=== PATIENT | female | born 1980 | race Caucasian/White ===

== ENCOUNTER 2017-11-12 02:51 | Inpatient (IN) | payer MEDICARE, OTHER, SELFPAY ==
[2017-11-12] VITALS (16 sets, daily range): BP systolic 82–132; BP diastolic 50–87; PULSE 71–124; RESP 14–20; TEMP 36.5–36.7; O2SAT 93–100; BMI 21.7
--- NOTE | 2017-11-12 02:59 | DI.RAD.S_ITS ---
PROCEDURE: XR ACUTE ABDOMEN SERIES INDICATIONS: Abdominal pain TECHNIQUE: One view chest and two views of the abdomen were acquired. COMPARISON: [facility], CT, CT ABDOMEN PELVIS WO CON, 11/12/2017, 3:49. FINDINGS: Surgical changes and devices: A right internal jugular Port-A-Cath is demonstrated with the tip extending into the proximal right atrium. Multiple surgical clips are demonstrated in the mediastinum. Chest: There are diffuse bilateral groundglass opacities which are nonspecific. Heart size is normal. No pleural effusions. No pneumoperitoneum. Abdomen: Bowel gas pattern is nonspecific with a paucity of small bowel gas. There is gas and stool demonstrated in the colon including in the rectum. No suspicious calcifications. Bones: No suspicious bony lesions. IMPRESSION: 1. Nonspecific bowel gas pattern with a paucity of small bowel gas. No evidence of obstruction. Recommend correlation with subsequent CT. 2. Diffuse bilateral groundglass opacities in the lungs are nonspecific and may represent pulmonary edema versus sequelae of infection. Dictated by: Tong Dominique M.D. on 11/12/2017 at 10:39 Approved by: Tong Dominique M.D. on 11/12/2017 at 10:41
--- NOTE | 2017-11-12 03:09 | ED_ITS ---
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 She denies provocation, palliation or radiation. She admits to nausea and vomiting but denies any change of bowel habits. She has had no dysuria, frequency or urgency. She was just at [facility] a few days ago with a diagnosis of pulmonary edema. Patient feels very dehydrated and becomes dizzy upon standing. MD complaint: abdominal pain Onset (ago): hour(s) Pain Consistency: intermittent Location: LLQ and RLQ Severity: severe Severity scale (1-10): 10 Quality: cramping and stabbing Radiation: none Migration to: no migration Relieving factors: nothing Exacerbating factors: movement Associated symptoms: nausea and vomiting Related Data Allergies Allergy/AdvReac Type Severity Reaction Status Date / Time doxycycline Allergy Verified 11/12/17 04:22 hydrocodone Allergy Verified 11/12/17 04:22 hydromorphone [From Dilaudid] Allergy Verified 11/12/17 04:22 levofloxacin [From Levaquin] Allergy Verified 11/12/17 04:22 oxycodone Allergy Verified 11/12/17 04:22 promethazine [From Phenergan] Allergy Verified 11/12/17 04:22 adhesive tape AdvReac Verified 11/12/17 04:22 Review of Systems Review of Systems All systems reviewed & are unremarkable except as noted in HPI and below Constitutional Denies chills, Denies fever(s), Denies lethargy and Denies weakness Eyes Denies change in vision, Denies eye discharge, Denies irritation and Denies loss of vision ENT Ears, Nose, Mouth, and Throat: Denies change in voice, Denies neck pain and Denies sore throat Cardiovascular Denies chest pain, Denies irregular heart rhythm, Denies lightheadedness, Denies palpitations and Denies orthopnea Gastrointestinal Gastrointestinal: Reports abdominal pain, Denies change in bowel habits, Denies diarrhea, Reports nausea and Reports vomiting Genitourinary Denies hematuria, Denies flank pain, Denies urinary incontinence and Denies urinary urgency Musculoskeletal Denies neck pain Integumentary/Breasts Denies pruritus, Denies erythema, Denies rash and Denies wounds Neurologic Denies confusion, Denies loss of vision and Denies weakness Psychiatric Denies anxiety, Denies confusion, Denies depression, Denies homicidal ideation and Denies suicidal ideation Endocrine Denies palpitations Hematologic/Lymphatic Denies easy bruising PFSH Medical History Anxiety (Acute) Cystic fibrosis (Acute) Depression (Acute) Diabetes (Acute) HTN (hypertension) (Acute) History of hysterectomy (Acute) Hypothyroidism (Acute) Lung transplant recipient (Acute) Osteopenia (Acute) Renal insufficiency (Acute) Small bowel obstruction (Acute) Surgical History History of appendectomy (Acute) Hx of cholecystectomy (Acute) Social History Smoking Status: Never smoker Exam Initial Vital Signs Initial Vital Signs: Vital Signs Temperature 98.1 F 11/12/17 04:02 Pulse Rate 98 H 11/12/17 04:02 Respiratory Rate 14 11/12/17 04:02 Blood Pressure 116/80 11/12/17 04:02 Pulse Oximetry 98 11/12/17 04:02 Const General: cooperative, well developed, acute distress and in distress Nutritional Appearance: well nourished Orientation: alert, awake, oriented x3 and not confused [facility] Head: normocephalic and atraumatic Ears: external ears normal and TM's normal bilaterally Nose: external nose normal and No nasal discharge Face and sinus: sinuses nontender, face symmetric, no sinus tenderness and No dry mucous membranes Mouth: No moist mucous membranes Teeth and gingiva: dentition normal Throat: tonsils normal and uvula midline Eyes General: appearance normal, both eyes and all related structures Eyelids: eyelids normal Conjunctivae: conjunctivae normal Sclera: sclerae normal Pupils: PERRL EOM: EOM intact bilaterally Resp Effort & Inspection: normal respiratory effort, able to speak in complete sentences, no respiratory distress and no use of accessory muscles Auscultation: clear to auscultation bilaterally, no rales, no rhonchi and no wheezes Cardio Rate: regular rate Rhythm: regular rhythm Heart Sounds: no click, no gallops, no murmurs and no rubs Pulses: normal peripheral pulses GI Inspection: non-distended Palpation: soft, no hepatosplenomegaly, No guarding, No pulsatile mass and tender Auscultation: normal bowel sounds Skin General: no rashes or lesions noted, No jaundice and No petechiae Neuro General: alert, oriented x3, gait normal and no focal motor deficits Speech: speech normal Extrem General: full ROM, no clubbing, cyanosis or edema, no pedal edema and no calf tenderness Psych Appearance: well kempt Mental Status: mental status grossly normal Attitude: cooperative Thought Content: normal and suicidality Judgment: judgment good Course Orders Ordered: ED Orders 11/12/17 EKG-12 Lead Routine 11/12/17 02:59 XR acute abdomen series Stat 11/12/17 03:31 Complete Blood Count AUTO DIFF Stat Comprehensive Metabolic Panel Stat Lactate (Lactic Acid) Stat Lipase Stat 11/12/17 03:51 CT abdomen pelvis wo con Stat 11/12/17 05:35 Potassium Stat Procalcitonin Stat White Blood Cell Count Stat Lactated Ringer's (Lactated Ringers) 1,000 mls @ 100 mls/hr IV CONT RAMONA Ondansetron HCl (Zofran) 4 mg IV Q4HR PRN PRN Reason: Nausea And Vomiting Last Admin: 11/12/17 03:32 Dose: 4 mg Discontinued Medications Hydrocortisone (Solu-Cortef) 100 mg IV NOW ONE Stop: 11/12/17 06:15 Hydromorphone HCl (Dilaudid) 0.5 mg IV NOW ONE Stop: 11/12/17 02:59 Last Admin: 11/12/17 03:33 Dose: Not Given Sodium Chloride (Normal Saline 0.9%) 1,000 mls @ 500 mls/hr IV CONT RAMONA Last Infusion: 11/12/17 06:09 Dose: 0 mls/hr Admin: 11/12/17 03:32 Dose: 500 mls/hr Morphine Sulfate (Morphine) 10 mg IV NOW ONE Stop: 11/12/17 03:24 Last Admin: 11/12/17 03:32 Dose: 10 mg Reevaluation(s) Reevaluation #1: Patient much more comfortable after morphine 10 mg IV Reevaluation #2: Patient continues to feel better though still has dry mucous membranes and feels a bit dizzy upon standing. Additionally when she moves her heart rate bumps up. She clearly needs more time in the hospital to stabilize her condition. I have called Dr. Sloan regarding her admission and he is happy to accept this patient on his service. He is happy with switching fluids to lactated Ringer's for more balanced fluid given her underlying renal disease. Additionally he requests hydrocortisone 100 mg IV Time: 06:23 Consultations Consultation #1: Called to transplant fellow at the [facility] to discuss the case. After discussion of history and physical as well as lab findings and images they do not feel the need to have the patient transferred to their facility and state weakening treat her locally. Vital Signs - 8 hr 11/12/17 04:02 11/12/17 05:50 11/12/17 06:12 Temperature 98.1 F Pulse Rate 98 H 102 H 102 H Respiratory Rate 14 20 Blood Pressure 116/80 Blood Pressure [Left Arm] 83/58 L 82/53 L Pulse Oximetry 98 99 100 MDM - Abdominal Pain Differential Diagnosis Differential diagnosis: Likely abdominal pain, constipation, endometriosis, pancreatitis and small bowel obstruction Medical Records Attestation: I reviewed the patient's medical records. Patient's complicated medical history, recent emergency department note from [place] [id number] to us. Lab Data Attestation: I reviewed the patient's lab results. Patient white count is elevated at 28,000, up from 12.5 on November 08. Additionally creatinine in is up from a baseline 2.8 up to 3.2. Potassium at 5.8 which is improved over the 6.0 from 11/08. Result diagrams: 11/12/17 05:35 11/12/17 05:35 Lab Results 11/12/17 11/12/17 11/12/17 Range/Units 03:31 03:31 03:31 WBC 28.2 H (4.5-11.0) X10^3/uL RBC 4.49 (4.0-5.2) X10^6/uL Hgb 12.1 (12.0-16.0) g/dL Hct 38.0 (36-46) % MCV 84.7 (80-100) fL MCH 27.0 (26-34) PG MCHC 31.9 (30-36) % RDW 13.6 (11.6-14.8) % Plt Count 336 (150-400) X10^3/uL Neut % (Auto) Not Reportable Lymph % (Auto) Not Reportable [place] % (Auto) Not Reportable Eos % (Auto) Not Reportable Baso % (Auto) Not Reportable Seg Neutrophils % 78.0 H (38-70) % Band Neutrophils % 4.0 (3-7) % Lymphocytes % (Manual) 4.0 L (25-45) % Monocytes % (Manual) 8.0 (2-11) % Eosinophils % (Manual) 3.0 (2-4) % Myelocytes % 3.0 H (-0) % Differential Comment Normal morphology RBC Morphology Normal morphology Sodium 139 (137-145) mmol/L Potassium 5.8 H (3.4-5.1) mmol/L Chloride 106.0 (98-107) mmol/L Carbon Dioxide 18.0 L (22-32) mmol/L BUN 64.0 H (7-17) mg/dL Creatinine 3.20 H (0.52-1.04) mg/dL Estimated GFR 16.5 L (>60) mL/min BUN/Creatinine Ratio 20.0 (6-22) Glucose 252 H (70-100) mg/dL Lactate 0.8 (0.7-2.1) mmol/L Calcium 9.9 (8.4-10.2) mg/dL Total Bilirubin 0.4 (0.2-1.3) mg/dL AST 17 (14-36) IU/L ALT 20 (9-52) IU/L Alkaline Phosphatase 121 (38-126) U/L Total Protein 6.8 (6.3-8.2) g/dL Albumin 3.5 (3.5-5.0) g/dL Globulin 3.3 (1.7-4.1) g/dL Albumin/Globulin Ratio 1.1 (1.0-2.8) Lipase < 10 L (23-300) U/L 11/12/17 11/12/17 Range/Units 05:35 05:35 WBC 22.2 H (4.5-11.0) X10^3/uL RBC (4.0-5.2) X10^6/uL Hgb (12.0-16.0) g/dL Hct (36-46) % MCV (80-100) fL MCH (26-34) PG MCHC (30-36) % RDW (11.6-14.8) % Plt Count (150-400) X10^3/uL Neut % (Auto) Lymph % (Auto) [place] % (Auto) Eos % (Auto) Baso % (Auto) Seg Neutrophils % (38-70) % Band Neutrophils % (3-7) % Lymphocytes % (Manual) (25-45) % Monocytes % (Manual) (2-11) % Eosinophils % (Manual) (2-4) % Myelocytes % (-0) % Differential Comment RBC Morphology Sodium (137-145) mmol/L Potassium 5.5 H (3.4-5.1) mmol/L Chloride (98-107) mmol/L Carbon Dioxide (22-32) mmol/L BUN (7-17) mg/dL Creatinine (0.52-1.04) mg/dL Estimated GFR (>60) mL/min BUN/Creatinine Ratio (6-22) Glucose (70-100) mg/dL Lactate (0.7-2.1) mmol/L Calcium (8.4-10.2) mg/dL Total Bilirubin (0.2-1.3) mg/dL AST (14-36) IU/L ALT (9-52) IU/L Alkaline Phosphatase (38-126) U/L Total Protein (6.3-8.2) g/dL Albumin (3.5-5.0) g/dL Globulin (1.7-4.1) g/dL Albumin/Globulin Ratio (1.0-2.8) Lipase (23-300) U/L Imaging Data CT scan - abdomen: Radiologist's impression: Multiple loops of thickened small bowel of which arm mildly distended, infection versus inflammatory bowel disease is favored ECG Data Attestation: I personally reviewed and interpreted this ECG as follows: Prior ECG tracings: not available for review Interpretation: Sinus tachycardia at 1:05 a.m. with no signs of ectopy. No ST segmental or T-wave abnormalities Discharge Plan Departure Patient Disposition: Admitted As Inpatient Clinical Impression: Abdominal pain, Dehydration
[2017-11-12] MEDS: MORPHINE 10 MG/ML INJ IV (03:32)
[2017-11-12] MEDS: ONDANSETRON 4 MG/2 ML INJ IV ×2 (03:32→10:41)
[2017-11-12] MEDS: SODIUM CHLORIDE 0.9% 1,000 ML 500 ML IV (03:32)
[2017-11-12 03:47] LABS: Hemoglobin 12.1 g/dL (12.0-16.0); Mean Corpuscular HGB Conc 31.9 % (30-36); Mean Corpuscular Volume 84.7 fL (80-100); Platelet Count 336 X10^3/uL (150-400); Red Blood Cell Count 4.49 X10^6/uL (4.0-5.2); Red Cell Distribution Width 13.6 % (11.6-14.8); White Blood Cell Count 28.2 X10^3/uL (4.5-11.0)
[2017-11-12 03:48] LABS: Add Manual Diff / Slide Review YES
[2017-11-12 03:49] LABS: Alanine Aminotransferase 20 IU/L (9-52); Albumin 3.5 g/dL (3.5-5.0); Albumin Globulin Ratio 1.1 (1.0-2.8); Alkaline Phosphatase 121 U/L (38-126); Aspartate Aminotransferase 17 IU/L (14-36); Bilirubin Total 0.4 mg/dL (0.2-1.3); Calcium 9.9 mg/dL (8.4-10.2); Estimated Glomerular Filt Rate 16.5 mL/min (>60); Globulin 3.3 g/dL (1.7-4.1); Glucose 252 mg/dL (70-100); HEMOLYSIS < 15 (0-50); Lactate (Lactic Acid) 0.8 mmol/L (0.7-2.1); Sodium 139 mmol/L (137-145); Total Protein 6.8 g/dL (6.3-8.2)
--- NOTE | 2017-11-12 03:51 | DI.CT.S_ITS ---
PROCEDURE: CT ABDOMEN PELVIS WO CON INDICATIONS: Severe abdominal pain. Reported history of cystic fibrosis. TECHNIQUE: Noncontrast 5 mm thick sections acquired from the diaphragms to the symphysis. 5 mm coronal and sagittal reformats were then performed. For radiation dose reduction, the following was used: automated exposure control, adjustment of mA and/or kV according to patient size. COMPARISON: None. FINDINGS: Image quality: Excellent. ABDOMEN: Lung bases: The visualized lung bases demonstrate bibasilar indistinct ground glass opacities and septal thickening likely representing sequelae of chronic scarring and infection given reported history of cystic fibrosis. There is also hyperlucency of the visualized lungs. Heart size is normal. A small hiatal hernia is present with mild fluid distention of the visualized distal esophagus. Solid organs: Liver is normal in size. Gallbladder is surgically absent. Pancreas is normal in contours. Spleen is normal in size. No adrenal nodules. Kidneys demonstrate no hydronephrosis. There is a nonobstructing right renal stone measuring up to 8 mm. There are also small hypoattenuating round lesions within the kidneys bilaterally likely representing cysts. Mild perinephric stranding demonstrated bilaterally. Peritoneum and bowel: There are multiple segments of mild bowel wall thickening predominantly in the left mid abdomen and left lower quadrant with associated mild inflammatory fat stranding and edema within the small bowel mesentery. The colon demonstrates normal caliber and wall thickness. There is colonic diverticulosis without acute diverticulitis. There is a small to moderate amount of free fluid in the pelvis. No free air. Nodes and vessels: No retroperitoneal or mesenteric adenopathy by size criteria. Aorta and inferior vena cava are normal in caliber. Miscellaneous: No ventral hernias. PELVIS: Genitourinary: Bladder wall thickness is normal. Miscellaneous: No inguinal hernias or adenopathy. Bones: No suspicious bony lesions. No vertebral body compression fractures. IMPRESSION: 1. Multiple segments of small bowel wall thickening with associated fat stranding and edema in the small bowel mesentery. The findings are consistent with a nonspecific enteritis, likely infectious or inflammatory in etiology. 2. Hyperlucent appearance of the visualized lungs with bibasilar changes compatible of chronic scarring. The findings are likely related to patient's reported history of cystic fibrosis. 3. Nonobstructing right renal stone. 4. Small to moderate amount of free fluid in the pelvis is nonspecific and may be reactive. No free air. Dictated by: Tong Dominique M.D. on 11/12/2017 at 10:09 Approved by: Tong Dominique M.D. on 11/12/2017 at 10:16
[2017-11-12 03:54] LABS: Lipase < 10 U/L (23-300); Potassium 5.8 mmol/L (3.4-5.1)
[2017-11-12 04:24] LABS: Morphology Comment Normal Morphology
[2017-11-12 04:26] LABS: RBC Morphology Normal Morphology
--- NOTE | 2017-11-12 04:40 | PC.NURSE ---
PT placed on 3L O2 NC per pt request states she is on O2 at home when she sleeps.
[2017-11-12 05:45] LABS: White Blood Cell Count 22.2 X10^3/uL (4.5-11.0)
[2017-11-12 05:48] LABS: HEMOLYSIS < 15 (0-50)
[2017-11-12 05:50] LABS: Potassium 5.5 mmol/L (3.4-5.1)
[2017-11-12] MEDS: HYDROCORTISONE 100 MG/2 ML VIAL IV ×3 (06:19→20:33)
[2017-11-12] MEDS: LACTATED RINGERS 1,000 ML 100 ML IV (06:20)
[2017-11-12 06:39] LABS: Procalcitonin 0.37 ng/mL (<0.5)
--- NOTE | 2017-11-12 09:56 | PM.HP.1 ---
History of Present Illness Date Patient Seen: 11/12/17 Time Patient Seen: 09:30 Chief complaint: Abdominal pain Narrative: Patty Butler is a 37 year old female, a patient of Dr. Piedad Hayes, presented to the [facility] Emergency room earlier this morning for abdominal pain. She started having abdominal discomfort around 10:30 p.m. last night. Her abdominal pain got worse over the next few hours. She describes intense cramping sensation in her stomach. The severity of the pain can get up to about 12/10 at its worst. The baseline pain is around 3 to 4/10. The pain is worse with body movements. Her last bowel movement was around 3 o'clock yesterday afternoon which was normal. She had nausea and vomited about 6 times. She tried to take Pepto-Bismol at home which did not help. Around 1 o'clock in the morning when she stood up, she felt lightheaded. 911 was called and she was brought to the [facility] Emergency Room. Abdominal CT scan showed multiple loops of thickened small bowels. She was also noticed to be hypotensive and tachycardic. She received stress dose steroid and aggressive IV hydration and was admitted to the medicine floor for abdominal pain and dehydration. 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 Her is currently deployed from the [place]. Denies alcohol drinking or cigarette smoking. 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 Family history: Father has type 2 diabetes. Both of her parents have hypertension. Meds Home Medications Medication Instructions Recorded Confirmed Type docusate sodium 100 mg PO BID 11/12/17 11/12/17 History ferrous sulfate 325 mg PO BID 11/12/17 11/12/17 History insulin aspart U-100 SUB-Q TIDWM 11/12/17 History levalbuterol HCl 0.63 mg INHALATION DAILY PRN 11/12/17 11/12/17 History levothyroxine 1 tab PO DAILY 11/12/17 11/12/17 History metoprolol succinate 50 mg PO BID 11/12/17 11/12/17 History omeprazole 1 cap PO BID 11/12/17 11/12/17 History prednisone 1 tab PO DAILY 11/12/17 11/12/17 History sirolimus 4 mg PO DAILY 11/12/17 11/12/17 History Allergies Allergy/AdvReac Type Severity Reaction Status Date / Time codeine Allergy Verified 11/12/17 09:47 diatrizoate sodium Allergy Anaphylaxis Verified 11/12/17 09:52 doxycycline Allergy Verified 11/12/17 04:22 hydrocodone Allergy Verified 11/12/17 04:22 hydromorphone [From Dilaudid] Allergy Verified 11/12/17 04:22 iodine Allergy Rash Verified 11/12/17 09:51 levofloxacin [From Levaquin] Allergy Rash Verified 11/12/17 09:53 oxycodone Allergy Verified 11/12/17 04:22 promethazine [From Phenergan] Allergy Verified 11/12/17 04:22 shellfish derived Allergy Hives Verified 11/12/17 09:55 shrimp Allergy Verified 11/12/17 09:55 adhesive tape AdvReac Verified 11/12/17 04:22 propofol AdvReac Nausea Verified 11/12/17 09:54 Review of Systems Constitutional Comments: No fever chills or sweats Cardiovascular Comments: No chest pain or shortness breath Respiratory Comments: Denies cough Gastrointestinal Gastrointestinal: Reports as per HPI Genitourinary Comments: No dysuria Neurologic Comments: No weakness or numbness Exam Vital Signs (past 8 hours): Vital Signs - 8 hr 11/12/17 03:20 11/12/17 04:02 11/12/17 04:10 Temperature 98.1 F Pulse Rate 110 H 98 H 116 H Respiratory Rate 14 Blood Pressure 116/80 Blood Pressure [Left Arm] 110/77 96/62 Pulse Oximetry 94 98 100 11/12/17 04:20 11/12/17 04:50 11/12/17 05:20 Temperature Pulse Rate 116 H 124 H 117 H Respiratory Rate Blood Pressure Blood Pressure [Left Arm] 93/60 96/54 L 93/59 L Pulse Oximetry 99 100 99 11/12/17 05:50 11/12/17 06:12 11/12/17 07:00 Temperature 97.7 F Pulse Rate 102 H 102 H Respiratory Rate 20 20 Blood Pressure 82/57 L Blood Pressure [Left Arm] 83/58 L 82/53 L Pulse Oximetry 99 100 97 11/12/17 07:59 Temperature 97.7 F Pulse Rate 92 H Respiratory Rate 20 Blood Pressure 90/50 L Blood Pressure [Left Arm] Pulse Oximetry 96 Pulse Oximetry 96 Oxygen Delivery Method Nasal Cannula Oxygen Flow Rate 2 Narrative Exam Narrative: GENERAL: Middle-aged woman in no acute distress. HEENT: Head normocephalic, atraumatic. Eyes pupils equal round NECK: Supple, no JVD, CHEST: Breath sounds equal bilaterally, no wheezes rales or rhonchi. CARDIAC: Regular rate and rhythm without murmurs, rubs or gallops. ABDOMEN: Mildly distended, diffuse tenderness, more noticeable in the left lower quadrant, possible rebound tenderness, decreased bowel sounds, EXTEMITIES: Normal range of motion, no clubbing or edema. NEUROLOGICAL: Alert and oriented; Normal muscle strength. SKIN: Warm, dry, no petechiae, no rashes or lesions. Objective Labs Result Diagrams: 11/12/17 05:35 11/12/17 05:35 Labs: Laboratory Results - last 24 hr 11/12/17 11/12/17 11/12/17 03:31 03:31 03:31 WBC 28.2 H RBC 4.49 Hgb 12.1 Hct 38.0 MCV 84.7 MCH 27.0 MCHC 31.9 RDW 13.6 Plt Count 336 Neut % (Auto) Not Reportable Lymph % (Auto) Not Reportable [place] % (Auto) Not Reportable Eos % (Auto) Not Reportable Baso % (Auto) Not Reportable Seg Neutrophils % 78.0 H Band Neutrophils % 4.0 Lymphocytes % (Manual) 4.0 L Monocytes % (Manual) 8.0 Eosinophils % (Manual) 3.0 Myelocytes % 3.0 H Differential Comment Normal morphology RBC Morphology Normal morphology Sodium 139 Potassium 5.8 H Chloride 106.0 Carbon Dioxide 18.0 L BUN 64.0 H Creatinine 3.20 H Estimated GFR 16.5 L BUN/Creatinine Ratio 20.0 Glucose 252 H Lactate 0.8 Calcium 9.9 Total Bilirubin 0.4 AST 17 ALT 20 Alkaline Phosphatase 121 Total Protein 6.8 Albumin 3.5 Globulin 3.3 Albumin/Globulin Ratio 1.1 Lipase < 10 L Procalcitonin 11/12/17 11/12/1718 05:35 05:35 05:35 WBC 22.2 H RBC Hgb Hct MCV MCH MCHC RDW Plt Count Neut % (Auto) Lymph % (Auto) [place] % (Auto) Eos % (Auto) Baso % (Auto) Seg Neutrophils % Band Neutrophils % Lymphocytes % (Manual) Monocytes % (Manual) Eosinophils % (Manual) Myelocytes % Differential Comment RBC Morphology Sodium Potassium 5.5 H Chloride Carbon Dioxide BUN Creatinine Estimated GFR BUN/Creatinine Ratio Glucose Lactate Calcium Total Bilirubin AST ALT Alkaline Phosphatase Total Protein Albumin Globulin Albumin/Globulin Ratio Lipase Procalcitonin 0.37 Assessment & Plan Plan: Plan: 1. Abdominal pain: The abdominal CT scan showed bowel wall thickening and dilation of the small bowel. We will continue conservative management. Increased IV fluid rate to 150 cc an hour. Use morphine as needed for pain. Use Zofran as needed for nausea. 2. History of lung transplant: Patient is immune compromised. Start stress dose steroid with hydrocortisone 100 mg q.8 hours. Continue tacrolimus per outpatient dosing. 3. Hypertension: Patient is currently hypotensive. Hold antihypertensive medications. 4. Chronic kidney disease stage 4: Baseline creatinine around 2.9. We will continue monitor her renal function. She is on transplant list at [facility] for living donor kidney transplant.
--- NOTE | 2017-11-12 10:07 | P.HP_ITS ---
History of Present Illness Date Patient Seen: 11/12/17 Time Patient Seen: 09:30 Chief complaint: Abdominal pain Narrative: Patty Butler is a 37 year old female, a patient of Dr. Piedad Hayes , presented to the [facility] Emergency room earlier this morning for abdominal pain. She started having abdominal discomfort around 10:30 p.m. last night. Her abdominal pain got worse over the next few hours. She describes intense cramping sensation in her stomach. The severity of the pain can get up to about 12/10 at its worst. The baseline pain is around 3 to 4/10. The pain is worse with body movements. Her last bowel movement was around 3 o'clock yesterday afternoon which was normal. She had nausea and vomited about 6 times. She tried to take Pepto-Bismol at home which did not help. Around 1 o' clock in the morning when she stood up, she felt lightheaded. 911 was called and she was brought to the [facility] Emergency Room. Abdominal CT scan showed multiple loops of thickened small bowels. She was also noticed to be hypotensive and tachycardic. She received stress dose steroid and aggressive IV hydration and was admitted to the medicine floor for abdominal pain and dehydration. 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 Her is currently deployed from the [facility] [place]. Denies alcohol drinking or cigarette smoking. 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 Family history: Father has type 2 diabetes. Both of her parents have hypertension. Meds Home Medications Medication Instructions Recorded Confirmed Type docusate sodium 100 mg PO BID 11/12/17 11/12/17 History ferrous sulfate 325 mg PO BID 11/12/17 11/12/17 History insulin aspart U-100 SUB-Q TIDWM 11/12/17 History levalbuterol HCl 0.63 mg INHALATION DAILY PRN 11/12/17 11/12/17 History levothyroxine 1 tab PO DAILY 11/12/17 11/12/17 History metoprolol succinate 50 mg PO BID 11/12/17 11/12/17 History omeprazole 1 cap PO BID 11/12/17 11/12/17 History prednisone 1 tab PO DAILY 11/12/17 11/12/17 History sirolimus 4 mg PO DAILY 11/12/17 11/12/17 History Allergies Allergy/AdvReac Type Severity Reaction Status Date / Time codeine Allergy Verified 11/12/17 09:47 diatrizoate sodium Allergy Anaphylaxis Verified 11/12/17 09:52 doxycycline Allergy Verified 11/12/17 04:22 hydrocodone Allergy Verified 11/12/17 04:22 hydromorphone [From Dilaudid] Allergy Verified 11/12/17 04:22 iodine Allergy Rash Verified 11/12/17 09:51 levofloxacin [From Levaquin] Allergy Rash Verified 11/12/17 09:53 oxycodone Allergy Verified 11/12/17 04:22 promethazine [From Phenergan] Allergy Verified 11/12/17 04:22 shellfish derived Allergy Hives Verified 11/12/17 09:55 shrimp Allergy Verified 11/12/17 09:55 adhesive tape AdvReac Verified 11/12/17 04:22 propofol AdvReac Nausea Verified 11/12/17 09:54 Review of Systems Constitutional Comments: No fever chills or sweats Cardiovascular Comments: No chest pain or shortness breath Respiratory Comments: Denies cough Gastrointestinal Gastrointestinal: Reports as per HPI Genitourinary Comments: No dysuria Neurologic Comments: No weakness or numbness Exam Vital Signs (past 8 hours): Vital Signs - 8 hr 3 11/12/17 03:20 11/12/17 04:02 11/12/17 04:10 Temperature 98.1 F Pulse Rate 110 H 98 H 116 H Respiratory Rate 14 Blood Pressure 116/80 Blood Pressure [Left Arm] 110/77 96/62 Pulse Oximetry 94 98 100 3 11/12/17 04:20 11/12/17 04:50 11/12/17 05:20 Temperature Pulse Rate 116 H 124 H 117 H Respiratory Rate Blood Pressure Blood Pressure [Left Arm] 93/60 96/54 L 93/59 L Pulse Oximetry 99 100 99 3 11/12/17 05:50 11/12/17 06:12 11/12/17 07:00 Temperature 97.7 F Pulse Rate 102 H 102 H Respiratory Rate 20 20 Blood Pressure 82/57 L Blood Pressure [Left Arm] 83/58 L 82/53 L Pulse Oximetry 99 100 97 3 11/12/17 07:59 Temperature 97.7 F Pulse Rate 92 H Respiratory Rate 20 Blood Pressure 90/50 L Blood Pressure [Left Arm] Pulse Oximetry 96 Pulse Oximetry 96 Oxygen Delivery Method Nasal Cannula Oxygen Flow Rate 2 Narrative Exam Narrative: GENERAL: Middle-aged woman in no acute distress. HEENT: Head normocephalic, atraumatic. Eyes pupils equal round NECK: Supple, no JVD, CHEST: Breath sounds equal bilaterally, no wheezes rales or rhonchi. CARDIAC: Regular rate and rhythm without murmurs, rubs or gallops. ABDOMEN: Mildly distended, diffuse tenderness, more noticeable in the left lower quadrant, possible rebound tenderness, decreased bowel sounds, EXTEMITIES: Normal range of motion, no clubbing or edema. NEUROLOGICAL: Alert and oriented; Normal muscle strength. SKIN: Warm, dry, no petechiae, no rashes or lesions. Objective Labs Result Diagrams: 11/12/17 05:35 11/12/17 05:35 Labs: Laboratory Results - last 24 hr 11/12/17 11/12/17 11/12/17 03:31 03:31 03:31 WBC 28.2 H RBC 4.49 Hgb 12.1 Hct 38.0 MCV 84.7 MCH 27.0 MCHC 31.9 RDW 13.6 Plt Count 336 Neut % (Auto) Not Reportable Lymph % (Auto) Not Reportable [place] % (Auto) Not Reportable Eos % (Auto) Not Reportable Baso % (Auto) Not Reportable Seg Neutrophils % 78.0 H Band Neutrophils % 4.0 Lymphocytes % (Manual) 4.0 L Monocytes % (Manual) 8.0 Eosinophils % (Manual) 3.0 Myelocytes % 3.0 H Differential Comment Normal morphology RBC Morphology Normal morphology Sodium 139 Potassium 5.8 H Chloride 106.0 Carbon Dioxide 18.0 L BUN 64.0 H Creatinine 3.20 H Estimated GFR 16.5 L BUN/Creatinine Ratio 20.0 Glucose 252 H Lactate 0.8 Calcium 9.9 Total Bilirubin 0.4 AST 17 ALT 20 Alkaline Phosphatase 121 Total Protein 6.8 Albumin 3.5 Globulin 3.3 Albumin/Globulin Ratio 1.1 Lipase < 10 L Procalcitonin 11/12/17 11/12/17 11/12/17 05:35 05:35 05:35 WBC 22.2 H RBC Hgb Hct MCV MCH MCHC RDW Plt Count Neut % (Auto) Lymph % (Auto) [place] % (Auto) Eos % (Auto) Baso % (Auto) Seg Neutrophils % Band Neutrophils % Lymphocytes % (Manual) Monocytes % (Manual) Eosinophils % (Manual) Myelocytes % Differential Comment RBC Morphology Sodium Potassium 5.5 H Chloride Carbon Dioxide BUN Creatinine Estimated GFR BUN/Creatinine Ratio Glucose Lactate Calcium Total Bilirubin AST ALT Alkaline Phosphatase Total Protein Albumin Globulin Albumin/Globulin Ratio Lipase Procalcitonin 0.37 Assessment & Plan Plan: Plan: 1. Abdominal pain: The abdominal CT scan showed bowel wall thickening and dilation of the small bowel. We will continue conservative management. Increased IV fluid rate to 150 cc an hour. Use morphine as needed for pain. Use Zofran as needed for nausea. 2. History of lung transplant: Patient is immune compromised. Start stress dose steroid with hydrocortisone 100 mg q.8 hours. Continue tacrolimus per outpatient dosing. 3. Hypertension: Patient is currently hypotensive. Hold antihypertensive medications. 4. Chronic kidney disease stage 4: Baseline creatinine around 2.9. We will continue monitor her renal function. She is on transplant list at [facility] for living donor kidney transplant.
[2017-11-12] MEDS: MORPHINE 4 MG/ML INJ 6 MG IV (10:43)
--- NOTE | 2017-11-12 12:34 | CM.DANOTE ---
DCP Assessment Patient is a 37 year old female who was admitted on 11/12/17 for Abdominal Pain. Pt has [employer] and [employer] for insurance and her PCP is not listed. EMR was reviewed. Per MD, pt has cystic fibrosis at baseline and a lung transplant years ago and is currently on the list for a kidney transplant. 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 SW attempted to meet bedside with pt but pt had friend bedside and requested SW to come back. SW came back and RN going through medications with the pt. SW will attempt again to help determine any d/c planning needs. Plan: SW to follow for bedside assessment with the pt towards determining d/c planning needs. SW needs unclear at this time. PRITI Nam
[2017-11-12] MEDS: INSULIN GLARGINE 100 UNIT/ML 3ML PEN 10 UNIT SUBCUT (13:17)
[2017-11-12] MEDS: LACTATED RINGERS 1,000 ML 150 ML IV (14:33)
[2017-11-12] MEDS: BENZOCAINE/MENTHOL 1 LOZ PKT 1 EACH PO (17:18)
[2017-11-12] MEDS: INSULIN ASPART 100 UNIT/ML INSULN PEN SUBCUT ×2 (17:19→20:29)
[2017-11-12] MEDS: TACROLIMUS 1 MG PO (20:36)
[2017-11-12] MEDS: FERROUS SULFATE 325 MG TABLET PO (20:36)
[2017-11-12] MEDS: TORSEMIDE 10 MG TABLET PO (20:36)
[2017-11-12] MEDS: CALCIUM CARBONATE 600 MG TABLET PO (20:37)
[2017-11-12] MEDS: CHOLECALCIFEROL (VITAMIN D3) 400 UNIT TABLET PO (20:37)
[2017-11-12] MEDS: PANTOPRAZOLE 20 MG TABLET PO (20:38)
[2017-11-13] VITALS (10 sets, daily range): BP systolic 125–155; BP diastolic 73–91; PULSE 87–100; RESP 15–22; TEMP 36.1–36.7; O2SAT 96–100
[2017-11-13] MEDS: HYDROCORTISONE 100 MG/2 ML VIAL IV (04:37)
[2017-11-13] MEDS: SODIUM CHLORIDE 0.9% FLUSH 10 ML IV ×4 (04:37→21:16)
--- NOTE | 2017-11-13 05:09 | PC.NURSE ---
Pt. requested CXR, states I was hospitalized last Tuesday for Pulmonary Edema & my symptoms now are the same. C/O dyspnea with exertion, also noted LLL crackles, 2 liters humidified SPO2 96%. Dr. Solorzano notified order for portable chest X-ray. Will place order & notify X-ray dept. Will monitor.
[2017-11-13] MEDS: BENZOCAINE/MENTHOL 1 LOZ PKT 1 EACH PO ×2 (05:19→11:52)
[2017-11-13] MEDS: LEVOTHYROXINE 50 MCG TABLET PO (05:20)
--- NOTE | 2017-11-13 05:29 | DI.RAD.S_ITS ---
PROCEDURE: XR CHEST 1V INDICATIONS: Dyspnea SOB with exertion. Hx. of Pulmonary edema. TECHNIQUE: One view of the chest was acquired. COMPARISON: [facility], CT, CT ABDOMEN PELVIS WO CON, 11/12/2017, 3:49. [facility], CR, XR ACUTE ABDOMEN SERIES, 11/12/2017, 2:40. FINDINGS: Surgical changes and devices: Port-A-Cath right sided approach. Surgical clips bilaterally at the mediastinum, uncertain reason by appearance. Lungs and pleura: No pleural effusions or pneumothorax. Lungs are abnormal with a interstitial prominence, perhaps related to a prior smoking history. However, a prior recent CT enclosed a history of cystic fibrosis and this is considered more likely the cause with that history. What appears to be a small nodule is present at the lateral right upper lobe near the apex, rounded and measuring approximately 7-8 mm in diameter. More inferiorly no definite nodule is seen. Mediastinum: Mediastinal contours appear normal. Heart size is normal. Bones and chest wall: No suspicious bony lesions. Overlying soft tissues appear unremarkable. IMPRESSION: The clinical history associated with a recent CT scan included a statement of prior history of cystic fibrosis. This is the presumed cause for the interstitial prominence of the lung parenchyma. A Port-A-Cath is in normal position. Surgical clips are present at the mid hilum level, uncertain surgical intervention etiology by appearance. Note is made of a small 7 by 8mm lateral right upper lobe nodule near the apex, near the course of the Port-A-Cath catheter. This could represent a small granuloma. It can be seen with benefit of retrospect on the chest portion of a recent abdominal plain film series but that was only obtained several days ago. Old comparison films presumably are available for the patient assuming the history of cystic fibrosis is correct. Reference to old chest plain films is recommended but if not available either followup by plain film or CT scanning as necessary. Dictated by: Kennedy Pak M.D. on 11/13/2017 at 8:25 Approved by: Kennedy Pak M.D. on 11/13/2017 at 8:30
[2017-11-13] MEDS: INSULIN ASPART 100 UNIT/ML INSULN PEN SUBCUT ×4 (06:23→17:33)
[2017-11-13] MEDS: [UNRECOGNIZED DRUG - OTHER] IV ×3 (06:47→21:14)
[2017-11-13] MEDS: HEPARIN 100 UNIT/ML IV ×3 (06:47→21:14)
[2017-11-13 07:12] LABS: Add Manual Diff / Slide Review YES; Hematocrit 28.3 % (36-46); Hemoglobin 9.2 g/dL (12.0-16.0); Mean Corpuscular HGB Conc 32.7 % (30-36); Mean Corpuscular Hemoglobin 27.4 PG (26-34); Mean Corpuscular Volume 83.9 fL (80-100); Platelet Count 280 X10^3/uL (150-400); Red Blood Cell Count 3.37 X10^6/uL (4.0-5.2); Red Cell Distribution Width 13.4 % (11.6-14.8); White Blood Cell Count 11.5 X10^3/uL (4.5-11.0)
[2017-11-13 07:15] LABS: BUN Creatinine Ratio 17.4 (6-22); Calcium 9.2 mg/dL (8.4-10.2); Estimated Glomerular Filt Rate 13.5 mL/min (>60); Glucose 200 mg/dL (70-100); HEMOLYSIS < 15 (0-50); Sodium 136 mmol/L (137-145)
[2017-11-13 07:23] LABS: Potassium 6.1 mmol/L (3.4-5.1)
[2017-11-13 08:02] LABS: Neutrophils Absolute Manual 10810 /uL (3000-5900); Total Cells Counted 100
[2017-11-13 08:04] LABS: Basophilic Stippling 1+; Polychromasia 1+
--- NOTE | 2017-11-13 08:13 | PM.PN.1 ---
Subjective Date Patient Seen: 11/13/17 Time Patient Seen: 08:00 Interval history: Patient has improvement of her abdominal discomfort, nausea, and vomiting. She received 3 L of IV fluid yesterday. She felt short of breath in the middle of night last night and requested the IV fluid to be discontinued. A portable chest x-ray was done earlier this morning. The result is still pending. She also noticed her glucose was elevated yesterday after she received stress dose steroid. Exam Vital Signs (past 8 hours): Vital Signs - 8 hr 11/13/17 05:01 Temperature 97.4 F L Pulse Rate 100 H Respiratory Rate 22 Blood Pressure 155/77 H Pulse Oximetry 96 Pulse Oximetry 96 Oxygen Delivery Method Nasal Cannula,Humidification Oxygen Flow Rate 1 Narrative Exam Narrative: GENERAL: Middle-aged woman in no acute distress. HEENT: Head normocephalic, atraumatic. Eyes pupils equal round NECK: Supple, no JVD, CHEST: Breath sounds equal bilaterally, no wheezes rales or rhonchi. CARDIAC: Regular rate and rhythm without murmurs, rubs or gallops. ABDOMEN: Soft, nontender EXTEMITIES: Normal range of motion, no clubbing or edema. NEUROLOGICAL: Alert and oriented; Normal muscle strength. SKIN: Warm, dry, no petechiae, no rashes or lesions. Objective Labs Result Diagrams: 11/13/17 06:42 11/13/17 06:42 Labs: Laboratory Results - last 24 hr 11/13/17 11/13/17 06:42 06:42 WBC 11.5 H RBC 3.37 L Hgb 9.2 L Hct 28.3 L MCV 83.9 MCH 27.4 MCHC 32.7 RDW 13.4 Plt Count 280 Neut % (Auto) Not Reportable Lymph % (Auto) Not Reportable [place] % (Auto) Not Reportable Eos % (Auto) Not Reportable Baso % (Auto) Not Reportable Total Counted 100 Seg Neutrophils % 78.0 H Band Neutrophils % 16.0 H Lymphocytes % (Manual) 2.0 L Monocytes % (Manual) 2.0 Metamyelocytes % 1.0 H Myelocytes % 1.0 H Neutrophils # (Manual) 89324 H RBC Morphology Not Reportable Polychromasia 1+ H Basophilic Stippling 1+ H Sodium 136 L Potassium 6.1 H Chloride 105.0 Carbon Dioxide 19.0 L BUN 66.0 H Creatinine 3.80 H Estimated GFR 13.5 L BUN/Creatinine Ratio 17.4 Glucose 200 H Calcium 9.2 Assessment & Plan Plan: Plan: 1. Abdominal pain: Possible viral gastroenteritis. She had significant improvement of her symptoms overnight with conservative management. IV fluid was discontinued last night. We will advance diet to full liquid diet and possibly to diabetic diet later this afternoon if she tolerates. Continue symptomatic control 2. Dehydration: Resolved after IV hydration. She received 3 L of IV fluid yesterday. 3. Acute kidney injury on chronic kidney disease stage 4. Her creatinine is elevated compared to her recent baseline, likely secondary to pre renal from hypotension. Hold lisinopril and torsemide today. She has improvement of her urine output in the past 12 hr. We will continue monitor her renal function. 4. Hyperkalemia: Secondary to acute kidney injury. Hold lisinopril. Continue monitor her electrolytes. 5. Hypertension: Her antihypertensive medications were on hold yesterday due to hypotension. We will restart metoprolol and amlodipine today. Hold lisinopril due to acute kidney injury and hyperkalemia. Continue monitor her blood pressure readings. 6. History of lung transplant: Patient is immune compromised. She received stress dose steroids with hydrocortisone 100 mg q.8 hours for the 1st 24 hr. Discontinue IV hydrocortisone. Continue prednisone 10 mg daily per outpatient dosing.. Continue tacrolimus per outpatient dosing. 7. Hypertension: Patient is currently hypotensive. Hold antihypertensive medications. 8. Chronic kidney disease stage 4: Baseline creatinine around 2.9. We will continue monitor her renal function. She is on transplant list at [facility] for living donor kidney transplant. 9. Disposition: Likely discharge home tomorrow if she continues to improve. Quality VTE Deep Vein Thrombosis/Pulmonary Embolism Present on Admission: No
[2017-11-13] MEDS: METOPROLOL 50 MG TABLET PO ×2 (08:37→21:15)
[2017-11-13] MEDS: AMLODIPINE 2.5 MG TABLET PO (08:37)
[2017-11-13] MEDS: TACROLIMUS 1 MG PO ×2 (08:37→21:16)
[2017-11-13] MEDS: LIPASE PROTEASE AMYLASE PO ×3 (08:38→16:55)
[2017-11-13] MEDS: PANTOPRAZOLE 20 MG TABLET PO ×2 (08:39→21:14)
[2017-11-13] MEDS: SIROLIMUS PO (08:39)
[2017-11-13] MEDS: CALCITRIOL 0.25 MCG CAPSULE PO (08:40)
[2017-11-13] MEDS: CALCIUM CARBONATE 600 MG TABLET PO ×2 (08:41→21:12)
[2017-11-13] MEDS: predniSONE 10 MG TABLET PO (08:42)
[2017-11-13] MEDS: LORATADINE 10 MG TABLET PO (08:42)
[2017-11-13] MEDS: FERROUS SULFATE 325 MG TABLET PO ×2 (08:43→21:12)
[2017-11-13] MEDS: CHOLECALCIFEROL (VITAMIN D3) 400 UNIT TABLET PO ×2 (08:43→21:11)
[2017-11-13] MEDS: INSULIN GLARGINE 100 UNIT/ML 3ML PEN 10 UNIT SUBCUT (08:55)
--- NOTE | 2017-11-13 10:10 | PC.NURSE ---
Pt expressing concerns that her portacath is not drawing blood. This RN attempted to draw blood after flushing with saline with no success. Pt requesting to have port re-accessed so that it can draw blood, states This is the main reason I have a portacath. Pt advised that this would be done around 1100 this am. Pt denies pain at this time. Noted she has mild abdominal distension but reports passing flatus.
--- NOTE | 2017-11-13 10:45 | RT ---
Saw patient history and went by to check on patient to see if she felt she needed a prn treatment or any respiratory needs at the moment. Patient sleeping, respirations even and unlabored, rate of around 10. Patient wearing O2 which she stated previously to nursing that she wears at home when sleeping. Will try back around noon.
--- NOTE | 2017-11-13 12:13 | RT ---
Patient awake and was assessed. BBS clear but slightly diminished. No wheezing or crackles auscultated. Room air sat 97%. RR 12. Patient says she felt a little short of breath in the am but feels fine now. Treatment offered and patient states she'll pass for the time being. Let her know that she has prn xopenex ordered and that she can have a treatment whenever she likes. Will follow.
--- NOTE | 2017-11-13 12:33 | CM.DPNOTE ---
Met with patient: alert and oriented. Notified patient of CM team role and patient understood. Patient is independent at baseline without DME. Patient is currently on Kidney transplant list and states she has a large support of neighborhood support. 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 Patient has no concerns or needs at this time. Patient will have neighbors or friends transport her home and she is hopeful to discharge tomorrow. Plan: discharge home when medically stable. CM team available as needed.
--- NOTE | 2017-11-13 14:44 | PC.NURSE ---
Portacath re-accessed and now draws blood back. Pt tolerated procedure well. No signs of inflammation at site. Tolerated full liquid diet for lunch.
[2017-11-13 15:49] LABS: Appearance Urine UA CLOUDY; Bilirubin Urine UA NEGATIVE (NEGATIVE); Color Urine UA YELLOW; Glucose Urine UA NEGATIVE (Negative); Ketones Urine UA NEGATIVE (NEGATIVE); Leukocyte Esterase Urine UA NEGATIVE (NEGATIVE); Nitrite Urine UA Negative (Negative); Occult Blood Urine UA NEGATIVE (Negative); Protein Urine UA NEGATIVE (Negative); Urobilinogen Urine UA 0.2 E.U./dL (0.2)
[2017-11-13 16:06] LABS: Amorphous Sediment Urine 1+; Bacteria Urine Few (2-10); RBC Urine 0-1/HPF (0-5/HPF); Squamous Epithelial Cell Urine 0-1 /HPF; WBC Urine 0-1/HPF (0-5/HPF)
[2017-11-13 16:07] LABS: Granular Casts Urine Occasional
[2017-11-13 16:08] LABS: Culture Indicated Urine Cult Not Indicated
[2017-11-13] MEDS: TACROLIMUS 0.5 MG PO (17:35)
[2017-11-13 18:04] LABS: HEMOLYSIS < 15 (0-50)
[2017-11-13 18:47] LABS: Potassium 6.3 mmol/L (3.4-5.1)
--- NOTE | 2017-11-13 20:13 | PC.NURSE ---
Evening Shift Note Dr. Solorzano aware that pt potassium increased from 6.1 to 6.3. Telephone order received to give PO kayexalate 60 g now. Pt expressing her concern of her decreased kidney function, stating I know my potassium is increased because my kidney function has gone down. I would prefer to talk to the doctor before I take the Kayexalate. Made pt aware of complications that could arise d/t not taking the kayexalate right now and with her increased K+ level, such as having an arrhythmia, pt verbalized her understanding, stating my k+ has been greater than 7.0 before and I have been asymptomatic. Pt agreed to take Kayexalate slowly, 15 g at a time.
[2017-11-13] MEDS: SODIUM POLYSTYRENE SULFON/SORB 15 GM/60 ML CUP 60 GM PO (21:11)
--- NOTE | 2017-11-13 21:21 | RT ---
FINE CRRACKLES NOTED IN BLL/RML. NO WHEEZES NOTED. O2 SAT ON 2 LPM N/C NOTED AT 98%. RR = 18. BRONCHODILATOR NOT NEEDED AT THIS TIME.
[2017-11-14] VITALS (12 sets, daily range): BP systolic 127–155; BP diastolic 72–91; PULSE 82–95; RESP 14–18; TEMP 36.4–37.2; O2SAT 91–98
[2017-11-14] MEDS: LEVOTHYROXINE 50 MCG TABLET PO (06:56)
[2017-11-14 07:18] LABS: BUN Creatinine Ratio 19.7 (6-22); Calcium 8.7 mg/dL (8.4-10.2); Estimated Glomerular Filt Rate 14.4 mL/min (>60); Glucose 151 mg/dL (70-100); HEMOLYSIS < 15 (0-50); Potassium 4.7 mmol/L (3.4-5.1); Sodium 140 mmol/L (137-145)
[2017-11-14 07:46] LABS: Add Manual Diff / Slide Review YES; Hematocrit 27.4 % (36-46); Hemoglobin 9.1 g/dL (12.0-16.0); Mean Corpuscular HGB Conc 33.2 % (30-36); Mean Corpuscular Hemoglobin 27.9 PG (26-34); Mean Corpuscular Volume 84.1 fL (80-100); Platelet Count 287 X10^3/uL (150-400); Red Blood Cell Count 3.26 X10^6/uL (4.0-5.2); Red Cell Distribution Width 13.3 % (11.6-14.8); White Blood Cell Count 10.6 X10^3/uL (4.5-11.0)
[2017-11-14] MEDS: INSULIN ASPART 100 UNIT/ML INSULN PEN SUBCUT ×4 (08:45→21:04)
[2017-11-14] MEDS: INSULIN GLARGINE 100 UNIT/ML 3ML PEN 10 UNIT SUBCUT (08:48)
[2017-11-14] MEDS: SIROLIMUS PO (08:49)
[2017-11-14] MEDS: LIPASE PROTEASE AMYLASE PO ×3 (08:50→16:46)
[2017-11-14] MEDS: FERROUS SULFATE 325 MG TABLET PO ×2 (08:51→21:07)
[2017-11-14] MEDS: CALCITRIOL 0.25 MCG CAPSULE PO (08:51)
[2017-11-14] MEDS: AMLODIPINE 2.5 MG TABLET PO (08:51)
[2017-11-14] MEDS: TACROLIMUS 1 MG PO ×2 (08:51→21:05)
[2017-11-14] MEDS: CALCIUM CARBONATE 600 MG TABLET PO ×2 (08:51→21:06)
[2017-11-14] MEDS: METOPROLOL 50 MG TABLET PO ×2 (08:51→21:07)
[2017-11-14] MEDS: [UNRECOGNIZED DRUG - OTHER] IV ×2 (08:52→21:07)
[2017-11-14] MEDS: PANTOPRAZOLE 20 MG TABLET PO ×2 (08:52→21:08)
[2017-11-14] MEDS: predniSONE 10 MG TABLET PO (08:52)
[2017-11-14] MEDS: LORATADINE 10 MG TABLET PO (08:52)
[2017-11-14] MEDS: HEPARIN 100 UNIT/ML IV ×2 (08:52→21:07)
[2017-11-14] MEDS: SODIUM CHLORIDE 0.9% FLUSH 10 ML IV ×2 (08:54→21:08)
[2017-11-14] MEDS: AZITHROMYCIN 250 MG TABLET 500 MG PO (08:54)
[2017-11-14] MEDS: LEVALBUTEROL 1.25 MG/0.5 ML NEB INH (09:52)
[2017-11-14] MEDS: FUROSEMIDE 40 MG/4 ML VIAL IV (10:21)
[2017-11-14 10:31] LABS: Neutrophils Absolute Manual 7844 /uL (3000-5900); Total Cells Counted 100
--- NOTE | 2017-11-14 13:01 | P.PN_ITS ---
Subjective Date Patient Seen: 11/14/17 Time Patient Seen: 12:49 Interval history: Patient reports resolution of abdominal pain, nausea and vomiting. She continues to feel short of breath at rest. Chest x-ray with some interstitial edema findings. Exam Vital Signs (past 8 hours): Vital Signs - 8 hr 3 11/14/17 05:33 11/14/17 08:00 11/14/17 09:52 Temperature 97.7 F 97.5 F L Pulse Rate 84 87 82 Respiratory Rate 16 18 14 Blood Pressure 141/76 H 155/89 H Pulse Oximetry 98 92 97 3 11/14/17 11:29 11/14/17 11:45 Temperature 99.0 F Pulse Rate 92 H Respiratory Rate 18 Blood Pressure 140/72 H Pulse Oximetry 96 97 Pulse Oximetry 97 Oxygen Delivery Method Nasal Cannula Oxygen Flow Rate 2 Narrative Exam Narrative: GENERAL: Patient appears it is mildly dyspneic at rest. HEENT: Head normocephalic, atraumatic. Mucous membranes moist. CHEST: Clear to auscultation bilaterally. CARDIAC: Regular rate and rhythm. ABDOMEN: Nondistended, soft, nontender EXTREMITIES: no edema. NEUROLOGICAL: Alert, pleasant, no focal findings SKIN: Warm, dry, no petechiae, no rash Objective Labs Result Diagrams: 11/14/17 06:55 11/14/17 06:55 Labs: Laboratory Results - last 24 hr 11/13/17 11/13/17 11/14/17 12:00 17:50 06:55 WBC 10.6 RBC 3.26 L Hgb 9.1 L Hct 27.4 L MCV 84.1 MCH 27.9 MCHC 33.2 RDW 13.3 Plt Count 287 Neut % (Auto) Not Reportable Lymph % (Auto) Not Reportable [place] % (Auto) Not Reportable Eos % (Auto) Not Reportable Baso % (Auto) Not Reportable Total Counted 100 Seg Neutrophils % 74.0 H Lymphocytes % (Manual) 11.0 L D Monocytes % (Manual) 8.0 Eosinophils % (Manual) 5.0 H Metamyelocytes % 1.0 H Myelocytes % 1.0 H Neutrophils # (Manual) 7844 H RBC Morphology Not Reportable Sodium Potassium 6.3 H* Chloride Carbon Dioxide BUN Creatinine Estimated GFR BUN/Creatinine Ratio Glucose Calcium Urine Color Yellow Urine Appearance Cloudy Urine pH 5.0 Ur Specific [place] 1.020 Urine Protein Negative Urine Glucose (UA) Negative Urine Ketones Negative Urine Occult Blood Negative Urine Nitrate Negative Urine Bilirubin Negative Urine Urobilinogen 0.2 Ur Leukocyte Esterase Negative Urine RBC 0-1/hpf Urine WBC 0-1/hpf Ur Squamous Epith Cells 0-1 /hpf Amorphous Sediment 1+ Urine Bacteria Few (2-10) H Granular Casts Occasional H Ur Culture Indicated? Cult not indicated Micro UA Comment Not Reportable 11/14/17 06:55 WBC RBC Hgb Hct MCV MCH MCHC RDW Plt Count Neut % (Auto) Lymph % (Auto) [place] % (Auto) Eos % (Auto) Baso % (Auto) Total Counted Seg Neutrophils % Lymphocytes % (Manual) Monocytes % (Manual) Eosinophils % (Manual) Metamyelocytes % Myelocytes % Neutrophils # (Manual) RBC Morphology Sodium 140 Potassium 4.7 D Chloride 106.0 Carbon Dioxide 22.0 BUN 71.0 H Creatinine 3.60 H Estimated GFR 14.4 L BUN/Creatinine Ratio 19.7 Glucose 151 H Calcium 8.7 Urine Color Urine Appearance Urine pH Ur Specific [place] Urine Protein Urine Glucose (UA) Urine Ketones Urine Occult Blood Urine Nitrate Urine Bilirubin Urine Urobilinogen Ur Leukocyte Esterase Urine RBC Urine WBC Ur Squamous Epith Cells Amorphous Sediment Urine Bacteria Granular Casts Ur Culture Indicated? Micro UA Comment Assessment & Plan Plan: Plan: 1. Acute gastroenteritis, acute dehydration. Clinically resolved. She is tolerating a regular diet. 2. Acute pulmonary edema, volume overload from IV hydration. Patient is short of breath with evidence of pulmonary edema on her chest x-ray. She received over 3 L hypertonic IV fluid in hospital and most likely fluid overloaded. Also recently seen at outside hospital ER for fluid retention. She had moderate 600 cc diuresis from 40 mg IV Lasix at 10:00 a.m.. She notes some improvement in dyspnea after IV Lasix although still feels dyspneic at rest. Plan: Give additional dose of Lasix 80 mg IV at 6:00 p.m. 3. Acute pre renal kidney injury, on chronic kidney disease stage 4. Baseline creatinine noted around 2.9. Her creatinine has stabilized around 3.6. Recheck labs in a.m.. Holding lisinopril and her oral torsemide. Continued patient routine metoprolol and amlodipine. She was recently put on transplant list at [facility] for living donor kidney transplant. 4. Hyperkalemia: Resolved, was secondary to acute kidney injury. Holding lisinopril. Patient states her baseline serum potassium runs between 4.9 and 5.2 range. Consider discharging on lower dose of lisinopril if renal function has not returned close to baseline. 5. History of lung transplant: Patient is immune compromised. She received stress dose steroids with hydrocortisone 100 mg q.8 hours for the 1st 24 hr. Continue prednisone 10 mg daily per outpatient dosing.. Continue tacrolimus per outpatient dosing. 6. Disposition: Likely discharge home tomorrow if renal function and respiratory status are stable. Quality VTE Deep Vein Thrombosis/Pulmonary Embolism Present on Admission: No
[2017-11-14] MEDS: BUTALB/APAP/CAFFEINE 50/325/40 TABLET 1 EACH PO (13:06)
[2017-11-14] MEDS: TACROLIMUS 0.5 MG PO (21:05)
[2017-11-14] MEDS: CHOLECALCIFEROL (VITAMIN D3) 400 UNIT TABLET PO (21:07)
[2017-11-15 00:05] VITALS: BP 144/86; PULSE 85; RESP 16; TEMP 36.8; O2SAT 95
[2017-11-15 00:30] VITALS: O2SAT 95
[2017-11-15 03:27] VITALS: BP 136/68; PULSE 81; RESP 16; TEMP 36.7; O2SAT 93
[2017-11-15 05:51] LABS: BUN Creatinine Ratio 20.9 (6-22); Blood Urea Nitrogen 69 mg/dL (7-17); Calcium 8.5 mg/dL (8.4-10.2); Carbon Dioxide 25 mmol/L (22-32); Chloride 106 mmol/L (98-107); Estimated Glomerular Filt Rate 15.9 mL/min (>60); Glucose 142 mg/dL (70-100); HEMOLYSIS < 15 (0-50); Potassium 4.3 mmol/L (3.4-5.1); Sodium 140 mmol/L (137-145)
[2017-11-15] MEDS: LEVOTHYROXINE 50 MCG TABLET PO (06:16)
[2017-11-15 07:00] VITALS: O2SAT 96
[2017-11-15 08:00] VITALS: BP 156/86; PULSE 94; RESP 18; TEMP 37.3; O2SAT 95
[2017-11-15] MEDS: INSULIN GLARGINE 100 UNIT/ML 3ML PEN 10 UNIT SUBCUT (08:32)
[2017-11-15] MEDS: INSULIN ASPART 100 UNIT/ML INSULN PEN SUBCUT (08:35)
[2017-11-15] MEDS: BUTALB/APAP/CAFFEINE 50/325/40 TABLET 1 EACH PO (08:38)
[2017-11-15] MEDS: TACROLIMUS 1 MG PO (08:45)
[2017-11-15] MEDS: SIROLIMUS PO (08:45)
[2017-11-15] MEDS: LIPASE PROTEASE AMYLASE PO (08:46)
[2017-11-15] MEDS: CALCITRIOL 0.25 MCG CAPSULE PO (08:47)
[2017-11-15] MEDS: AMLODIPINE 2.5 MG TABLET PO (08:47)
[2017-11-15] MEDS: CALCIUM CARBONATE 600 MG TABLET PO (08:47)
[2017-11-15 08:48] VITALS: O2SAT 97
[2017-11-15] MEDS: CHOLECALCIFEROL (VITAMIN D3) 400 UNIT TABLET PO (08:48)
[2017-11-15] MEDS: FERROUS SULFATE 325 MG TABLET PO (08:48)
[2017-11-15] MEDS: LORATADINE 10 MG TABLET PO (08:49)
[2017-11-15] MEDS: METOPROLOL 50 MG TABLET PO (08:50)
[2017-11-15] MEDS: predniSONE 10 MG TABLET PO (08:52)
[2017-11-15] MEDS: SODIUM CHLORIDE 0.9% FLUSH 10 ML IV (08:53)
[2017-11-15] MEDS: PANTOPRAZOLE 20 MG TABLET PO (08:53)
[2017-11-15] MEDS: HEPARIN 100 UNIT/ML IV (08:56)
[2017-11-15] MEDS: [UNRECOGNIZED DRUG - OTHER] IV (08:56)
--- NOTE | 2017-11-15 09:58 | PM.DS.1 ---
History of Present Illness Chief complaint: Abdominal pain Narrative: Patty Butler is a 37 year old female a patient of Dr. Piedad Hayes, presented to the [facility] Emergency room earlier this morning for abdominal pain. She started having abdominal discomfort around 10:30 p.m. last night. Her abdominal pain got worse over the next few hours. She describes intense cramping sensation in her stomach. The severity of the pain can get up to about 12/10 at its worst. The baseline pain is around 3 to 4/10. The pain is worse with body movements. Her last bowel movement was around 3 o'clock yesterday afternoon which was normal. She had nausea and vomited about 6 times. She tried to take Pepto-Bismol at home which did not help. Around 1 o'clock in the morning when she stood up, she felt lightheaded. 911 was called and she was brought to the [facility] Emergency Room. Abdominal CT scan showed multiple loops of thickened small bowels. She was also noticed to be hypotensive and tachycardic. She received stress dose steroid and aggressive IV hydration and was admitted to the medicine floor for abdominal pain and dehydration. Discharge Providers Date of admission: 11/12/17 06:37 Discharge provider: Jaxson Sloan MD Summary Discharge Diagnosis: 1. Acute gastroenteritis resolved 2. Acute kidney injury, pre renal 3. Chronic kidney disease stage 4 or 5 4. Acute hyperkalemia 5. Acute pulmonary edema secondary to IV hydration 6. 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 Type 1 diabetes Hospital Course: Patient admitted for abdominal pain and vomiting. She was provided IV hydration about 3 L hypertonic solution total. Symptoms resolved. However, she developed acute pulmonary edema which was treated with IV Lasix 40 mg with good diuresis and improvement of breathing. On admission, her potassium was up to 6.3 in spite of the vomiting and she received Kayexalate. She was also in some acute renal failure with creatinine up to 3.8 during admission which improved down to 3.3 on discharge. Her baseline creatinine is around 2.9. Patient states her baseline serum potassium is round 5.0. We held her lisinopril during this admission and serum potassium is 4.3 on discharge. She was seen last week at [facility] ER due to pulmonary edema but remains on same dose of torsemide she has been on for a long time. 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 She has an appointment at the [facility] nephrology Clinic in December. She will try to push up that appointment to be seen in November. Have also left a message with the Nephrology Clinic nurse coordinator for Dr. Grant Aguilera, telephone [phone] to review patient's hospital course. She is being discharged in stable condition. Advised to reduce her lisinopril from 5 mg twice daily down to 5 mg once daily. Continue torsemide 10 mg daily with weight monitoring. Instructed to take extra 10 mg torsemide if her weight is up by more than 2 lb in a day or 4 lb in a week. Instructed to have renal function labs rechecked in a week with PCP. Her blood sugars have been well controlled during this admission. Status at Discharge Functional status at discharge: independent ambulation Time Spent with Patient Greater than 30 minutes Exam Vital Signs (past 8 hours): Vital Signs - 8 hr 11/15/17 03:27 11/15/17 08:00 11/15/17 08:48 Temperature 98.1 F 99.1 F Pulse Rate 81 94 H Respiratory Rate 16 18 Blood Pressure 136/68 H 156/86 H Pulse Oximetry 93 95 97 Pulse Oximetry 97 Oxygen Delivery Method Nasal Cannula Oxygen Flow Rate 2 Objective Labs Result Diagrams: 11/14/17 06:55 11/15/17 05:25 Labs: Laboratory Results - last 24 hr 11/14/17 11/15/17 06:55 05:25 Total Counted 100 Seg Neutrophils % 74.0 H Lymphocytes % (Manual) 11.0 L D Monocytes % (Manual) 8.0 Eosinophils % (Manual) 5.0 H Metamyelocytes % 1.0 H Myelocytes % 1.0 H Neutrophils # (Manual) 7844 H RBC Morphology Not Reportable Sodium 140 Potassium 4.3 Chloride 106 Carbon Dioxide 25 BUN 69 H Creatinine 3.30 H Estimated GFR 15.9 L BUN/Creatinine Ratio 20.9 Glucose 142 H Calcium 8.5 Discharge Plan Discharge Plan Patient Disposition: Home, Self-Care Provider Discharge Instructions Diet: Diet as Tolerated Discharge Data Attending Provider: Jaxson Sloan Admit Date/Time: 11/12/17 06:37 Quality VTE Deep Vein Thrombosis/Pulmonary Embolism Present on Admission: No
--- NOTE | 2017-11-15 10:07 | P.DS_ITS ---
History of Present Illness Chief complaint: Abdominal pain Narrative: Patty Butler is a 37 year old female a patient of Dr. Piedad Hayes , presented to the [facility] Emergency room earlier this morning for abdominal pain. She started having abdominal discomfort around 10:30 p.m. last night. Her abdominal pain got worse over the next few hours. She describes intense cramping sensation in her stomach. The severity of the pain can get up to about 12/10 at its worst. The baseline pain is around 3 to 4/10. The pain is worse with body movements. Her last bowel movement was around 3 o'clock yesterday afternoon which was normal. She had nausea and vomited about 6 times. She tried to take Pepto-Bismol at home which did not help. Around 1 o' clock in the morning when she stood up, she felt lightheaded. 911 was called and she was brought to the [facility] Emergency Room. Abdominal CT scan showed multiple loops of thickened small bowels. She was also noticed to be hypotensive and tachycardic. She received stress dose steroid and aggressive IV hydration and was admitted to the medicine floor for abdominal pain and dehydration. Discharge Providers Date of admission: 11/12/17 06:37 Discharge provider: Jaxson Sloan MD Summary Discharge Diagnosis: 1. Acute gastroenteritis resolved 2. Acute kidney injury, pre renal 3. Chronic kidney disease stage 4 or 5 4. Acute hyperkalemia 5. Acute pulmonary edema secondary to IV hydration 6. 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 Type 1 diabetes Hospital Course: Patient admitted for abdominal pain and vomiting. She was provided IV hydration about 3 L hypertonic solution total. Symptoms resolved. However, she developed acute pulmonary edema which was treated with IV Lasix 40 mg with good diuresis and improvement of breathing. On admission, her potassium was up to 6.3 in spite of the vomiting and she received Kayexalate. She was also in some acute renal failure with creatinine up to 3.8 during admission which improved down to 3.3 on discharge. Her baseline creatinine is around 2.9. Patient states her baseline serum potassium is round 5.0. We held her lisinopril during this admission and serum potassium is 4.3 on discharge. She was seen last week at [facility] ER due to pulmonary edema but remains on same dose of torsemide she has been on for a long time. 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 She has an appointment at the [facility] nephrology Clinic in December. She will try to push up that appointment to be seen in November. Have also left a message with the Nephrology Clinic nurse coordinator for Dr. Grant Aguilera, telephone [phone] to review patient's hospital course. She is being discharged in stable condition. Advised to reduce her lisinopril from 5 mg twice daily down to 5 mg once daily. Continue torsemide 10 mg daily with weight monitoring. Instructed to take extra 10 mg torsemide if her weight is up by more than 2 lb in a day or 4 lb in a week. Instructed to have renal function labs rechecked in a week with PCP. Her blood sugars have been well controlled during this admission. Status at Discharge Functional status at discharge: independent ambulation Time Spent with Patient Greater than 30 minutes Exam Vital Signs (past 8 hours): Vital Signs - 8 hr 3 11/15/17 03:27 11/15/17 08:00 11/15/17 08:48 Temperature 98.1 F 99.1 F Pulse Rate 81 94 H Respiratory Rate 16 18 Blood Pressure 136/68 H 156/86 H Pulse Oximetry 93 95 97 Pulse Oximetry 97 Oxygen Delivery Method Nasal Cannula Oxygen Flow Rate 2 Objective Labs Result Diagrams: 11/14/17 06:55 11/15/17 05:25 Labs: Laboratory Results - last 24 hr 11/14/17 11/15/17 06:55 05:25 Total Counted 100 Seg Neutrophils % 74.0 H Lymphocytes % (Manual) 11.0 L D Monocytes % (Manual) 8.0 Eosinophils % (Manual) 5.0 H Metamyelocytes % 1.0 H Myelocytes % 1.0 H Neutrophils # (Manual) 7844 H RBC Morphology Not Reportable Sodium 140 Potassium 4.3 Chloride 106 Carbon Dioxide 25 BUN 69 H Creatinine 3.30 H Estimated GFR 15.9 L BUN/Creatinine Ratio 20.9 Glucose 142 H Calcium 8.5 Discharge Plan Discharge Plan Patient Disposition: Home, Self-Care Provider Discharge Instructions Diet: Diet as Tolerated Discharge Data Attending Provider: Jaxson Sloan Admit Date/Time: 11/12/17 06:37 Quality VTE Deep Vein Thrombosis/Pulmonary Embolism Present on Admission: No
--- NOTE | 2017-11-15 11:19 | PC.NURSE ---
Assess- Pts Bs this am 126, pt requested to have 12u of novolog as she carb counts when she eats her meals. She was also given 10u of Lantus, pt gives her own injections in her l.arm. Took meds whole with water, BS CTA, 2l of o2 and sats are 96%. Up ad mattie to the bathroom. Pt is going to be discharging this morning around noon.
== END 2017-11-15 12:10 | disposition home or self-care (01) | DRG 391 ==
LOC: ED 06:24 → AC 06:38
PROVIDERS: Internal Medicine; Admitting Provider Internal Medicine; Emergency Provider Emergency Medicine; Visit Provider Internal Medicine
DX: A08.4 Viral intestinal infection, unspecified (principal); J81.0 Acute pulmonary edema; E84.9 Cystic fibrosis, unspecified; N18.4 Chronic kidney disease, stage 4 (severe); N17.9 Acute kidney failure, unspecified; T86.818 Other complications of lung transplant; I12.9 Hypertensive chronic kidney disease with stage 1 through stage 4 chronic kidney disease, or unspecified chronic kidney disease; Z79.4 Long term (current) use of insulin; E03.9 Hypothyroidism, unspecified; Z76.82 Awaiting organ transplant status; E87.5 Hyperkalemia; E10.22 Type 1 diabetes mellitus with diabetic chronic kidney disease; Z86.718 Personal history of other venous thrombosis and embolism; E86.0 Dehydration
CPT/HCPCS: 36415; 36591; 36592; 71045; 74022; 74176; 80048; 80053; 81001; 82962; 83605; 83690; 84132; 84145; 85025; 85048; 93005; 94640; 94760; 96374; 99284; 99285; J1642; J1720; J1940; J2270; J2405; J7614

== ENCOUNTER → 2019-10-24 11:48 | Outpatient (CLI) | payer MEDICARE, OTHER, SELFPAY ==
[2017-11-12 06:57] VITALS: BMI 21.7
--- NOTE | 2019-10-24 | DI.MRI.S_ITS ---
PROCEDURE: MR LOWER LEG LT WO CON COMPARISON: None. INDICATIONS: CELLULITIS OF LEFT LOWER LEG Technique: Multiplanar multisequence MR images of left lower leg were obtained without IV contrast infusion. FINDINGS: Bones and joints: There is no marrow edema. No fracture or dislocation. No cortical erosion or bony destructive changes are seen.Geographic area of T1 and T2 hypointense signal with peripheral T2 hyperintense signal is seen within medullary space of proximal and distal tibial shaft are most consistent with focal areas of osteonecrosis. Soft tissues: There is subcutaneous soft tissue edema and swelling through although her leg soft tissue. No gross soft tissue abscess collection. No underlying muscle involvement is seen. IMPRESSION: 1. Subcutaneous soft tissue edema and swelling throughout left lower leg consistent with cellulitis. No abscess collection. No skin ulceration. 2. No underlying muscle involvement. 3. No marrow edema. No evidence of osteomyelitis. Focal areas of osteonecrosis in medullary space of the proximal and distal tibial shaft. Dictated by: Russell Dunn M.D. on 10/24/2019 at 16:05 Approved by: Russell Dunn M.D. on 10/24/2019 at 17:22
== END ==
PROVIDERS: Referring Provider Family Medicine; Visit Provider Family Medicine
DX: L03.116 Cellulitis of left lower limb (principal)
CPT/HCPCS: 73718

== ENCOUNTER → 2019-11-21 12:13 | Outpatient (CLI) | payer MEDICARE, OTHER, SELFPAY ==
[2017-11-12 06:57] VITALS: BMI 21.7
--- NOTE | 2019-11-21 | DI.CT.S_ITS ---
PROCEDURE: CT LE LT W CON INDICATIONS: CELLULITIS LEFT LEG TECHNIQUE: Noncontrast 3-mm axial sections acquired from the distal tibial shaft to the talar dome, with coronal and sagittal reformats.. COMPARISON: [facility], , LOWER LEG LT WO CON, 10/24/2019, 12:08. FINDINGS: Image quality: Diagnostic. Bones: There is no acute fracture, dislocation, or suspicious osseous lesion identified involving the osseous structures of the left lower leg. The bone mineralization may be slightly decreased. There may be early degenerative changes of the 1st metatarsophalangeal joint. Otherwise, no significant degenerative changes are appreciated. Postoperative changes of the right lower leg are compatible with previous below knee amputation. Soft tissues: Extensive subcutaneous edema of the left lower leg is identified with scattered subcutaneous calcifications present. No definite edema or fluid is seen within the deep fascial planes. No soft tissue air is appreciated. No drainable or loculated fluid collection is appreciated. The degree of edema is more pronounced near the level of the foot and ankle. No soft tissue masses are identified. Extensive atherosclerosis of the left lower leg is identified, which is unusual for the patient's age. There is no significant muscle atrophy. Please note that the ligamentous, tendinous, and cartilaginous structures of the knee and ankle are not adequately evaluated on CT. IMPRESSION: 1. Extensive subcutaneous edema is compatible with the patient's history of cellulitis. There is no definitive abscess. 2. No convincing CT findings of osteomyelitis. If there is high clinical concern for osteomyelitis, please consider contrast enhanced MRI or three-phase bone scan for better catheterization. 3. Extensive atherosclerosis of the left lower leg and subcutaneous calcifications are compatible with the patient's history of calciphylaxis. Dictated by: Alan Badillo M.D. on 11/21/2019 at 12:21 Approved by: Alan Badillo M.D. on 11/21/2019 at 12:26
== END ==
PROVIDERS: PCP Family Medicine; Referring Provider Family Medicine; Visit Provider Family Medicine
DX: L03.116 Cellulitis of left lower limb (principal); I70.202 Unspecified atherosclerosis of native arteries of extremities, left leg; Z89.511 Acquired absence of right leg below knee
CPT/HCPCS: 73700